=== PATIENT | female | born 1990 | race Caucasian/White ===

== ENCOUNTER 2018-05-20 14:06 | Emergency (ER) | END 2018-05-20 16:43 | disposition home or self-care (01) ==

== ENCOUNTER 2018-10-28 21:37 | Outpatient (CLI) | payer OTHER ==
[~2018-10-28] VITALS: Ht 160 cm; Wt 84.2 kg
[2018-10-28 21:52] VITALS: Ht 160 cm; Wt 84.2 kg
[2018-10-28] MEDS ORDERED: PREN-93 PO (21:54)
[2018-10-28] MEDS ORDERED: FER325 PO (21:54)
--- NOTE | 2018-10-28 23:58 | TRIAGE ---
OB Triage Datetime Report Generated by CPN: 10/28/2018 23:58 Datetime: 10/28/2018 23:39 Labor Evaluation Frequency: X2 Monitor Mode: External Duration (sec)2399: 60-100 Quality: Mild Pattern: Normal: <= 5 Contractions in 10 Minutes Resting Tone [place]: Relaxed Heart Rate FHR Baseline Rate: 135 Monitor Mode: External US Variability: Moderate 6-25 bpm Accelerations: 15X15 Decelerations: None Category: Category I Datetime: 10/28/2018 22:45 Stage of : OB Triage Labor Evaluation Frequency: x2 Monitor Mode: External Duration (sec)2399: 70-120 Quality: Mild Pattern: Normal: <= 5 Contractions in 10 Minutes Resting Tone [place]: Relaxed Heart Rate FHR Baseline Rate: 135 Monitor Mode: External US Variability: Moderate 6-25 bpm Accelerations: 15X15 Decelerations: None Category: Category I Pain Assessment Pain Scale: 0 Pain Presence: None/Denies Pain Type: N/A Pain Assessment Comments: Pt reported 0 pain on her right side when lying down in bed. Datetime: 10/28/2018 22:00 Stage of : OB Triage Maternal Assessment Level of Consciousness: Fully Conscious DTR's/Clonus: DTRs 2+; No Clonus Headache: Denies Blurred Vision: No Respiratory Effort: Unlabored; Regular Rhythm; Equal Expansion Breath Sounds, Left: Clear and Equal Breath Sounds, Right: Clear and Equal Nausea/Vomiting: Denies RUQ Epigastric Pain: Denies Lower Extremities Edema: None Degree: None Upper Extremities Edema: None Degree: None Facial Edema: None Fall Risk Assessment History of Falling: (0) No Secondary Diagnosis: (0) No Ambulatory Aid: (0) Bedrest/Nurse Assist IV Therapy: (0) No Gait: (0) Normal/Bedrest/Immobile Mental Status: (0) Oriented to Own Ability Fall Score: 0 Fall Risk Score Definition: No Risk: No action required Pain Assessment Pain Scale: 5 Pain Presence: Constant Pain Type: Dull Pain Location: RIGHT SIDE PAIN Pain Goal: 0 Pain Relief Measures: Comfort Measures Datetime: 10/28/2018 21:59 Stage of : OB Triage Datetime: 10/28/2018 21:58 Time of Arrival: 10/28/2018 21:33 EGA: 36.3 Arrived By: Wheelchair Arrived From: Home Chief Complaint: BLURRY VISION RIGHT SIDED PAIN SINCE THURSDAY Movement: Present Contractions: OCCASIONAL Rupture of Membranes: Denies Vaginal Discharge: Present Recent Sexual Intercouse: Denies Abdominal Trauma: Not Applicable Patient Complaints: Other Additional Patient Complaints: EMESIS X1 Time Provider Notified: 10/28/2018 21:43 Provider Notified: DR. VALDEZ Initial Plan: EFM, EVALUATE BLOOD PRESSURE, CALL OB Datetime: 10/28/2018 21:57 Stage of : OB Triage
--- NOTE | 2018-10-29 01:41 | PN ---
Triage Information Date/Time 10/29/18 Reason for visit: bluury vision after vomit Weeks of Gestation 36w3d /Para Diabetes: none Hypertention: none Objective BP 100/59 similar with multiple occasions highest 122/68 HR 76-93 Heart Rate: 130's Contractions: >10 Minutes Apart Results/Medications Result Diagram: 10/28/18225110/28/182251 Results 24 hrs Laboratory Tests Test 10/28/18 22:52 White Blood Count 9.3 Red Blood Count 3.99 L Hemoglobin 11.7 L Hematocrit 35.0 L Mean Corpuscular Volume 87.7 Mean Corpuscular Hemoglobin 29.3 Mean Corpuscular Hemoglobin Concent 33.4 Red Cell Distribution Width 14.3 Platelet Count 175 Mean Platelet Volume 10.5 H Immature Granulocytes % 1.400 H Neutrophils % 65.0 Lymphocytes % 24.7 Monocytes % 7.4 Eosinophils % 1.3 Basophils % 0.2 Nucleated Red Blood Cells % 0.0 Immature Granulocytes # 0.130 H Neutrophils # 6.0 Lymphocytes # 2.3 Monocytes # 0.7 Eosinophils # 0.1 Basophils # 0.0 Nucleated Red Blood Cells # 0.0 Prothrombin Time 13.4 Prothrombin Time Ratio 1.0 INR International Normalized Ratio 1.01 Activated Partial Thromboplast Time 25.8 Fibrinogen 511.0 H Urine Color YELLOW Urine Clarity SLIGHTLY CLOUDY A Urine pH 7.0 Urine Specific [place] 1.014 Urine Ketones NEGATIVE Urine Nitrite NEGATIVE Urine Bilirubin NEGATIVE Urine Urobilinogen NEGATIVE Urine Leukocyte Esterase NEGATIVE Urine Microscopic RBC 0 Urine Microscopic WBC 1 Urine Squamous Epithelial Cells MODERATE Urine Bacteria FEW A Urine Hemoglobin NEGATIVE Urine Glucose NEGATIVE Urine Total Protein NEGATIVE Sodium Level 136 Potassium Level 3.7 Chloride Level 106 Carbon Dioxide Level 19 L Anion Gap 11 Blood Urea Nitrogen 8 Creatinine 0.51 Est Glomerular Filtrat Rate mL/min > 60 Glucose Level 79 Uric Acid 3.7 Calcium Level 9.3 Total Bilirubin 0.1 L Direct Bilirubin 0.00 Indirect Bilirubin 0.1 Aspartate Amino Transf (AST/SGOT) 23 Alanine Aminotransferase (ALT/SGPT) 26 Alkaline Phosphatase 159 H Total Protein 6.9 Albumin 3.5 Globulin 3.40 H Albumin/Globulin Ratio 1.02 Imaging Results BPP 8/8 RASHIDA 8.9 Disposition: Discharge Assessment/Plan A IUP 36w3d borderline oligohydroamnios blurry vision (last eye exam in july) resolved, only one time briefly after vomit P RTH in 3days for RASHIDA RTH prn if symptoms recur MARIE VALDEZ MD Oct 29, 2018 01:41
== END 2018-10-28 23:57 | disposition home or self-care (01) ==
LOC: L-D 21:37 → OBT 21:37 → L-D 21:51 → OBT 23:57
PROVIDERS: ATTEND Specialist
DX: O26.893 Other specified pregnancy related conditions, third trimester (principal); Z3A.36 36 weeks gestation of pregnancy; H53.8 Other visual disturbances
CPT/HCPCS: 76818; 80053; 81001; 84560; 85025; 85384; 85610; 85730; G0463; 81003

== ENCOUNTER 2018-10-31 21:00 | Outpatient (CLI) | payer OTHER ==
[~2018-10-31] VITALS: Ht 160 cm; Wt 84.4 kg
[2018-10-31 20:50] VITALS: Ht 160 cm; Wt 84.4 kg
[~2018-10-31 21:00] MED LIST: FER325 PO; PREN-93 PO
[2018-10-31 21:02] VITALS: BP 102/63; PULSE 76; RESP 17
--- NOTE | 2018-10-31 23:25 | TRIAGE ---
OB Triage Datetime Report Generated by CPN: 10/31/2018 23:25 Datetime: 10/31/2018 23:00 Labor Evaluation Frequency: x3 with irritability Monitor Mode: External Duration (sec)2399: 100-150 Heart Rate FHR Baseline Rate: 135 Monitor Mode: External US Variability: Moderate 6-25 bpm Accelerations: 15X15 Decelerations: None Category: Category I Datetime: 10/31/2018 22:10 Vaginal Exam Membrane Status: Intact Datetime: 10/31/2018 22:00 Heart Rate FHR Baseline Rate: 135 Monitor Mode: External US Variability: Moderate 6-25 bpm Accelerations: 15X15 Decelerations: None Category: Category I Datetime: 10/31/2018 21:58 Labor Evaluation Frequency: x2 with irritability Monitor Mode: External Duration (sec)2399: 70-110 Pain Assessment Pain Scale: 0 Pain Presence: None/Denies Pain Type: N/A Datetime: 10/31/2018 21:30 Labor Evaluation Frequency: x1 with irritability Monitor Mode: External Duration (sec)2399: 200 Heart Rate FHR Baseline Rate: 135 Monitor Mode: External US Variability: Moderate 6-25 bpm Accelerations: 15X15 Decelerations: None Category: Category I Datetime: 10/31/2018 21:02 Stage of : OB Triage Assessment Type: Triage Maternal Assessment Level of Consciousness: Fully Conscious DTR's/Clonus: DTRs 2+; No Clonus Headache: Denies Blurred Vision: No Respiratory Effort: Unlabored; Regular Rhythm; Equal Expansion Breath Sounds, Left: Clear and Equal Breath Sounds, Right: Clear and Equal Nausea/Vomiting: Denies RUQ Epigastric Pain: Denies Lower Extremities Edema: None Degree: None Upper Extremities Edema: None Degree: None Facial Edema: None Temperature Route: Oral Fall Risk Assessment History of Falling: (0) No Secondary Diagnosis: (0) No Ambulatory Aid: (0) Bedrest/Nurse Assist IV Therapy: (0) No Gait: (0) Normal/Bedrest/Immobile Mental Status: (0) Oriented to Own Ability Fall Score: 0 Fall Risk Score Definition: No Risk: No action required Comments: Patient states she feels active movement Pain Assessment Pain Scale: 0 Pain Presence: None/Denies Pain Type: N/A Datetime: 10/31/2018 20:50 Time of Arrival: 10/31/2018 20:50 EGA: 36.6 Arrived By: Ambulatory Arrived From: Home Chief Complaint: Repeat RASHIDA Movement: Present Contractions: Denies/Absent Rupture of Membranes: Denies Vaginal Bleeding: None Vaginal Discharge: Denies Recent Sexual Intercouse: Denies Abdominal Trauma: Not Applicable Patient Complaints: Other Time Provider Notified: 10/31/2018 22:05 Provider Notified: Dr. Little Initial Plan: EFM x2, RASHIDA Datetime: 10/28/2018 22:00 Fall Score: 0 Fall Risk Score Definition: No Risk: No action required Datetime: 10/28/2018 21:58 EGA: 36.3
--- NOTE | 2018-11-01 01:22 | PN ---
Triage Information Date/Time Reason for visit: Repeat ultrasound for RASHIDA Weeks of Gestation 36 weeks and 6 days /Para Diabetes: none Hypertention: none Objective Vital Signs Date Temp Pulse Resp B/P (MAP) Pulse Ox O2 O2 Flow FiO2 Time Delivery Rate 10/31/18 98.3 76 17 102/63 Room Air 21:02 (76) Heart Rate: 130's Contractions: None Disposition: Discharge Assessment/Plan 28-year-old 2 para 1001 with single intrauterine at 36 weeks and 6 days with a CLAUDINE of 11/22/2018 presents for repeat RASHIDA. She had and RASHIDA 3 days ago which was 8.9 cm. - FHR: No sign of metabolic acidosis- Category I - Contractions: None - US performed, RASHIDA of 10.4 cm - Symptoms and sign of labor, preeclampsia, kick count discussed with patient, she voiced understanding. All of her questions answered. - Patient was discharged home in stable condition with the appropriate discharge instructions provided. I would like patient to have close follow-up with her primary physician or outpatient clinic in 1-2 days or return to triage for worsening symptoms or any other urgent concerns. NAZIA ANGELES Nov 01, 2018 01:22
== END 2018-10-31 23:17 | disposition home or self-care (01) ==
LOC: OBT 21:00 → L-D 21:06 → OBT 23:17
PROVIDERS: ATTEND Specialist
DX: O41.93X0 Disorder of amniotic fluid and membranes, unspecified, third trimester, not applicable or unspecified (principal); Z3A.36 36 weeks gestation of pregnancy
CPT/HCPCS: 76815; G0463

== ENCOUNTER 2018-11-17 17:16 | Inpatient (IN) | payer OTHER ==
[~2018-11-17] VITALS: Ht 160 cm; Wt 85.3 kg
[2018-11-17] MEDS ORDERED: LACTATED RINGER'S 1,000 ML IV PRN (20:35)
[2018-11-17] MEDS ORDERED: IBUPROFEN 600 MG TAB PO PRN (21:00)
[2018-11-17] MEDS ORDERED: MISOPROSTOL 200 MCG TAB PR PRN (21:00)
[2018-11-17] MEDS: LACTATED RINGER'S 1,000 ML IV SCH (21:00)
[2018-11-17] MEDS ORDERED: LIDOCAINE 1% (MPF) 30 ML INJ INJ PRN (21:00)
[2018-11-17] MEDS ORDERED: CARBOPROST 250 MCG INJ IM PRN (21:00)
[2018-11-17] MEDS ORDERED: OXYTOCIN 30 UNITS/LR 500 ML IV SCH (21:00)
[2018-11-17] MEDS ORDERED: BUTORPHANOL 2 MG INJ IV PRN (21:00)
[2018-11-17] MEDS ORDERED: OXYTOCIN 30 UNITS/LR 500 ML IV PRN (21:00)
[2018-11-17] MEDS ORDERED: METHYLERGONOVINE 0.2 MG INJ IM PRN (21:00)
[2018-11-17] MEDS ORDERED: BUTORPHANOL 1 MG INJ IV PRN (21:00)
[2018-11-17] MEDS ORDERED: MINERAL OIL LIGHT 10 ML VIAL TOP PRN (21:00)
[2018-11-17] MEDS ORDERED: AMPICILLIN 2 GM/NS (PMX) 100 ML IV ONE (21:00)
[2018-11-17 22:51] VITALS: Ht 160 cm; Wt 85.3 kg
[2018-11-17 22:52] VITALS: BP 112/75; PULSE 86; RESP 17
[2018-11-17] MEDS: MISOPROSTOL 50 MCG CAPSULE PO PRN (22:55)
[2018-11-18] MEDS: MISOPROSTOL 50 MCG CAPSULE PO PRN ×3 (03:12→12:04)
[2018-11-18] MEDS: AMPICILLIN 1 GM/NS (PMX) 50 ML IV SCH ×6 (03:12→23:21)
[2018-11-18] MEDS: LACTATED RINGER'S 1,000 ML IV SCH ×3 (06:52→20:19)
--- NOTE | 2018-11-18 07:43 | HP ---
Date/Time of Note Date/Time of Note DATE: 11/18/18 TIME: 07:39 OB - History Hx of Present Free Text/Dictation 28 YO with IUP at 39.3 weeks with EDC 11/22/2018 who reported classic symptoms of cholestasis of with itching all over the body including the palm of hands and sole of feet and worsening at night. she was started on Cytotec. pelvic is adequate and EFW < 8 Lb. she is on oral Cytotec. NST is reassuring Care: Good Care Ultrasounds: Normal mid trimester US Obstetrical Complications: None Medical Complications: None Past Family/Social History * Past Medical, Surgical, Family and Obstetric Histories reviewed from chart. OB Admission Exam Vital Signs Vital Signs Vital Signs Date Temp Pulse Resp B/P (MAP) Pulse Ox O2 O2 Flow FiO2 Time Delivery Rate 11/17/18 98.5 86 17 112/75 Room Air 22:52 (87) Physical Exam HEENT: WNL Heart: Rhythm Normal Lungs: Clear, Equal Abdomen: WNL Extremities: Normal Reflexes: Normal Cervical Dilatation: 1cm Last 72 hours Lab Results CBC & BMP 11/17/18 21:20 Liver Function Test 11/17/18 21:20 Alanine Aminotransferase (ALT/SGPT) 28 Albumin 3.6 Alkaline Phosphatase 194 H Aspartate Amino Transf (AST/SGOT) 27 Direct Bilirubin 0.00 Total Protein 6.7 OB Assessment/Plan Other Assessment: IOL for Cholestasis of prenancy at 39.3 weeks Induction Method: per Misoprostol Protocol JAYJAY GUERRA MD Nov 18, 2018 07:43
[2018-11-18] MEDS: URSODIOL 300 MG CAP PO SCH ×2 (08:35→22:06)
[2018-11-18] MEDS ORDERED: FENTAnyl 2MCG/ML-ROPIV 0.2% 100 ML ONE (19:52)
--- NOTE | 2018-11-18 19:55 | PREAC ---
Date/Time of Note Date/Time of Note DATE: 11/18/18 TIME: 19:54 Anesthesia Eval and Record Evaluation Time Pre-Procedure Interview DATE: 11/18/18 TIME: 19:54 Age 28 Sex female NPO: 8 hrs Preoperative diagnosis LABOR PAIN Planned procedure LABOR EPIDURAL Past Medical History Past Medical History: Includes : : (2), Para: (90), Gestational age: (39 3/7 WEEKS) Surgery & Anesthesia Issues No known issue Meds Anticoagulation: No Beta Gilma within 24 hr: No Reason Beta Gilma not given: Pt. not on B-Gilma Reported Medications Ferrous Sulfate* (Ferrous Sulfate*) 325 Mg Tabec, 325 MG PO DAILY, TAB 10/28/18 Vit No.124/Iron/FA ( Vitamin Tablet) 1 Each Tablet, 1 EACH PO, TAB 10/28/18 Current Medications Lactated Ringer's 1,000 ml @ 125 mls/hr Q8H IV Last administered on 11/18/18at 16:25; Admin Dose 125 MLS/HR; Start 11/17/18 at 20:35 Ampicillin 50 ml @ 100 mls/hr Q4H IV Last administered on 11/18/18at 18:55; Admin Dose 100 MLS/HR; Start 11/18/18 at 01:00 Butorphanol Tartrate (Stadol) 1 mg Q2H PRN IV .PAIN; Start 11/17/18 at 21:00 Butorphanol Tartrate (Stadol) 2 mg Q2H PRN IV .PAIN; Start 11/17/18 at 21:00 Lidocaine (Xylocaine 1% (Mpf)) 30 ml ONCE PRN INJ .EPISIOTOMY; Start 11/17/18 at 21:00 Oxytocin/Lactated Ringer's 500 ml @ 500 mls/hr ONCE POST IV ; Start 11/17/18 at 21:00 Oxytocin/Lactated Ringer's 500 ml @ 125 mls/hr POST IV ; Start 11/17/18 at 21:00 Ibuprofen (Motrin) 600 mg ONCE PRN PO .PAIN 1-5; Start 11/17/18 at 21:00 Lactated Ringer's 1,000 ml @ 2,000 mls/hr Q30M PRN IV .ANESTHESIA; Start 11/17/18 at 20:35 Oxytocin/Lactated Ringer's 500 ml @ 0 mls/hr ONCE PRN IV .VAGINAL BLEEDING; Start 11/17/18 at 21:00 Methylergonovine Maleate (Methergine) 0.2 mg ONCE PRN IM .VAGINAL BLEEDING; Start 11/17/18 at 21:00 Carboprost Tromethamine (Hemabate) 250 mcg ONCE PRN IM .VAGINAL BLEEDING; Start 11/17/18 at 21:00 Misoprostol (Cytotec) 1,000 mcg ONCE PRN [place] .VAGINAL BLEEDING; Start 11/17/18 at 21:00 Mineral Oil (Muri-Lube) 10 ml PRN PRN TOP DELIVERY LUBRICATION; Start 11/17/18 at 21:00 Misoprostol (Cytotec 50 Mcg Capsule) 50 mcg Q4H PRN PO CERVICAL RIPENING Last administered on 11/18/18at 12:04; Admin Dose 50 MCG; Start 11/17/18 at 22:00 Ursodiol (Actigall) 300 mg BID PO Last administered on 11/18/18at 08:35; Admin Dose 300 MG; Start 11/18/18 at 09:00 Meds reviewed: Yes Allergies Coded Allergies: No Known Allergy (Unverified , 10/31/18) Allergies Reviewed: Yes Labs/Studies Labs Reviewed: Reviewed by anesthesiologist Result Diagram: 11/17/18211911/17/182119 Laboratory Tests 11/17/18 21:20 Blood Bank Test 11/17/18 21:20 Antibody Screen NEGATIVE Blood Type O POSITIVE Rh Immune Globulin Candidate NO test: N/A Pre-procedure Exam Last vitals Vital Signs Date Temp Pulse Resp B/P (MAP) Pulse Ox O2 O2 Flow FiO2 Time Delivery Rate 11/17/18 98.5 86 17 112/75 Room Air 22:52 (87) Airway: Adequate mouth opening, Adequate thyromental dist Mallampati: Mallampati II Teeth: Normal Lung: Normal Heart: Normal ASA Physical Status ASA physical status: 2 Emergency: None Planned Anesthetic Neuraxial: Epidural Planned Pain Management Epidural Pre-operative Attestations Prior to commencing anesthesia and surgery, the patient was re-evaluated, there was verification of: *The patient's identity *The results of appropriate recent lab work and preoperative vital signs *The above evaluation not changing prior to induction *Anesthetic plan, risk benefits, alternative and complications discussed with patient/family; questions answered; patient/family understands, accepts and wishes to proceed. Misha Magana M.D. Nov 18, 2018 19:55
--- NOTE | 2018-11-18 20:19 | PAC ---
Date/Time of Note Date/Time of Note DATE: 11/18/18 TIME: 20:19 Post-Anesthesia Notes Post-Anesthesia Note Last documented vital signs Vital Signs Date Temp Pulse Resp B/P (MAP) Pulse Ox O2 O2 Flow FiO2 Time Delivery Rate 11/17/18 98.5 86 17 112/75 Room Air 22:52 (87) Activity: WNL Respiratory function: WNL Cardiovascular function: WNL Mental status: Baseline Pain reasonably controlled: Yes Hydration appropriate: Yes Nausea/Vomiting absent: Yes Misha Magana M.D. Nov 18, 2018 20:19
[2018-11-18] MEDS ORDERED: TRIMETHOBENZAMIDE 100 MG/ML VIAL IM PRN (20:30)
[2018-11-18] MEDS ORDERED: NALOXONE (0.4 MG/ML) INJ IV PRN (20:30)
[2018-11-18] MEDS ORDERED: FENTAnyl 2MCG/ML-ROPIV 0.2% 100 ML BAG EPI SCH (20:30)
[2018-11-18] MEDS ORDERED: DIPHENHYDRAMINE 50 MG INJ IV PRN (20:30)
[2018-11-18] MEDS ORDERED: ONDANSETRON 4 MG INJ IV PRN (20:30)
[2018-11-19] MEDS: OXYTOCIN 30 UNITS/LR 500 ML IV SCH ×2 (02:18→02:38)
--- NOTE | 2018-11-19 02:27 | LDN ---
Date/Time of Note Date/Time of Note DATE: 11/19/18 TIME: 02:24 Delivery Summary s/p of viable male infant APGARs 8/9 over intact perineum. placenta delivered intact and spontaneously. EBL 600 ml. Cytotec, Methergine and Pitocin and massaging the uterus done. Placenta Delivered: Spontaneously, Intact & Complete Episiotomy: No Perineal laceration: 0 Anesthesia type: Epidural Estimated blood loss: 600 Sponge & Needle done & correct: Yes All needle counts correct: Yes Any foreign bodies felt in the: No Delivery Information Sex Infant Sex: male Apgars 1 Minute: 8 5 Minute: 9 Suctioning Nose & mouth suctioned at rima: No Delee suction performed: No Umbilical Cord Umbilical cord with: 3 Vessels Cord presentations: nuchal cord Nuchal cord present X: 1 Cord Blood was obtained: Yes Mother & Baby Disposition Disposition Mom & Baby to Maternity; Good: Yes JAYJAY GUERRA MD Nov 19, 2018 02:27
[2018-11-19] MEDS ORDERED: NA PHOSPHATE/BIPHOS 133 ML ENEMA PR PRN (02:30)
[2018-11-19] MEDS ORDERED: ONDANSETRON 4 MG TAB PO PRN (02:30)
[2018-11-19] MEDS ORDERED: ONDANSETRON 4 MG INJ IV PRN (02:30)
[2018-11-19] MEDS ORDERED: SENNA/DOCUSATE NA (8.6MG/50MG) TAB PO PRN (02:30)
[2018-11-19] MEDS ORDERED: DIBUCAINE 1% 30 GM OINT TOP PRN (02:30)
[2018-11-19] MEDS ORDERED: HYDROCODONE/APAP (5/325) TAB PO PRN ×2 (02:30)
[2018-11-19] MEDS ORDERED: MISOPROSTOL 200 MCG TAB PR PRN (02:30)
[2018-11-19] MEDS ORDERED: OXYTOCIN 30 UNITS/LR 500 ML IV PRN (02:30)
[2018-11-19] MEDS ORDERED: DIPHENHYDRAMINE 50 MG INJ IV PRN (02:30)
[2018-11-19] MEDS ORDERED: CARBOPROST 250 MCG INJ IM PRN (02:30)
[2018-11-19] MEDS ORDERED: MAGNESIUM HYDROXIDE 30ML CUP PO PRN (02:30)
[2018-11-19] MEDS ORDERED: DIPHENHYDRAMINE 25 MG CAP PO PRN (02:30)
[2018-11-19 04:20] VITALS: BP 107/57; PULSE 94; RESP 18
[2018-11-19] MEDS: IBUPROFEN 600 MG TAB PO SCH ×3 (06:29→18:06)
[2018-11-19] MEDS: LACTATED RINGER'S 1,000 ML IV SCH (07:24)
[2018-11-19] MEDS: LACTATED RINGER'S 1,000 ML IV* SCH ×2 (07:24→10:23)
[2018-11-19 08:30] VITALS: BP 110/56; PULSE 101; RESP 19
[2018-11-19] MEDS: LANOLIN HPA 1 PKT TOP PRN ×2 (08:30→22:22)
[2018-11-19] MEDS: BENZOCAINE 20% 56 ML SPRAY TOP PRN (08:30)
[2018-11-19] MEDS: WITCH HAZEL/GLYCERIN PAD PR PRN (08:30)
[2018-11-19] MEDS: URSODIOL 300 MG CAP PO SCH ×2 (08:30→22:22)
[2018-11-19] MEDS: SENNA/DOCUSATE NA (8.6MG/50MG) TAB PO SCH ×2 (08:30→21:27)
[2018-11-19 12:10] VITALS: BP 113/55; PULSE 89; RESP 17
[2018-11-19 15:35] VITALS: BP 109/59; PULSE 90; RESP 20
[2018-11-19 19:30] VITALS: BP 102/55; PULSE 89; RESP 18
[2018-11-20] VITALS: BP 100/54; PULSE 82; RESP 18
[2018-11-20] MEDS: IBUPROFEN 600 MG TAB PO SCH ×5 (00:12→23:48)
[2018-11-20 04:09] VITALS: BP 90/47; PULSE 84; RESP 18
[2018-11-20 08:00] VITALS: BP 108/68; PULSE 85; RESP 18
[2018-11-20] MEDS: SENNA/DOCUSATE NA (8.6MG/50MG) TAB PO SCH ×2 (10:22→20:51)
[2018-11-20] MEDS: URSODIOL 300 MG CAP PO SCH ×2 (10:22→20:51)
--- NOTE | 2018-11-20 10:40 | PN ---
Date/Time of Note Date/Time of Note DATE: 11/20/18 TIME: 10:37 OB Subjective Subjective Subjective She reports vaginal bleeding decreased. Breast-feeding. Urinated. Ambulating. Reports numbness in both hands. Reports swelling of both sub-axillary area during . Denies any pain in that area. Reports bulginess and swelling of submaxillary area started at 4 months of . OB Objective Objective Objective Appearance: Alert and oriented x4 does not appear to be in any acute distress Neuro exam within normal limits Abdomen: Soft, gravid, obese, fundus firm and palpable below the umbilicus and nontender Breast: No evidence of engorgement or mastitis There is soft tissue bulginess in both sub-axillary area noted consistent with likely accessory breast tissue There is also evidence of acanthosis nigricans and sub-axillary area noted Extremities, no calf tenderness, no click, 2+ bilateral symmetric edema, no cord palpable Laboratory Tests Test 11/20/18 04:44 White Blood Count 14.3 #H Red Blood Count 3.39 L Hemoglobin 10.0 L Hematocrit 29.8 L Mean Corpuscular Volume 87.9 Mean Corpuscular Hemoglobin 29.5 Mean Corpuscular Hemoglobin Concent 33.6 Red Cell Distribution Width 15.1 H Platelet Count 159 Mean Platelet Volume 10.7 H Immature Granulocytes % 1.000 H Neutrophils % 70.1 Lymphocytes % 19.9 Monocytes % 7.1 Eosinophils % 1.8 Basophils % 0.1 Nucleated Red Blood Cells % 0.0 Immature Granulocytes # 0.140 H Neutrophils # 10.0 H Lymphocytes # 2.9 Monocytes # 1.0 H Eosinophils # 0.3 Basophils # 0.0 Nucleated Red Blood Cells # 0.0 OB Assessment/Plan Other Assessment: 28-year-old status post induction for cholestasis of at term day #1 Doing well Numbness of upper extremity. Neuro exam and motor function within normal limits Symptoms related to carpal tunnel syndrome. Advised the patient to raise arms at night.. Reassured Anemia, , asymptomatic Bilateral subaxillary soft tissue, appeared during , exam consistent with likely accessory breast tissue Currently no evidence of tenderness engorgement Expectant management discussed with patient Routine care Anticipate possible discharge home tomorrow MANAS TORERS MD Nov 20, 2018 10:40
[2018-11-20 16:33] VITALS: BP 123/56; PULSE 90; RESP 18
[2018-11-20 19:30] VITALS: BP 113/73; PULSE 85; RESP 19
[2018-11-21 04:00] VITALS: BP_SYST 107; BP_SYST 111; BP_DIAS 68; PULSE 91; RESP 19
[2018-11-21] MEDS: IBUPROFEN 600 MG TAB PO SCH ×2 (05:43→12:41)
[2018-11-21] MEDS ORDERED: MEASLES,MUMPS,RUBELLA VACCINE INJ SC* ONE (09:00)
[2018-11-21] MEDS: SENNA/DOCUSATE NA (8.6MG/50MG) TAB PO SCH (09:00)
[2018-11-21] MEDS ORDERED: VARICELLA VACCINE LIVE/PF 1,350 UNIT/0.5 ML ML SC* ONE (09:00)
[2018-11-21] MEDS ORDERED: DIPHTH/TET/ACEL PERTUSS (ADULT) 0.5 ML VIAL IM* ONE (09:00)
[2018-11-21] MEDS: URSODIOL 300 MG CAP PO SCH (09:53)
--- NOTE | 2018-11-21 10:40 | DS ---
Date/Time of Note Date/Time of Note DATE: 11/21/18 TIME: 10:39 Obstetrical Discharge Record Final Diagnosis Final Diagnosis: Term delivered Complications Augmentation: Yes Induction: Yes Rupture of Membranes: No Condition on Discharge Physical Assessment Voiding: Yes Bowel Movement: Yes Breast: Soft, non-tender, Filling Fundus: Firm Abdomen and Incision: soft, not tender Calf Tenderness: No Patient Condition: Good JAYJAY GUERRA MD Nov 21, 2018 10:40
[2018-11-21] MEDS: WITCH HAZEL/GLYCERIN PAD PR PRN (12:44)
[2018-11-21] MEDS: BENZOCAINE 20% 56 ML SPRAY TOP PRN (12:44)
== END 2018-11-21 13:00 | disposition home or self-care (01) | DRG 805 ==
LOC: L-D 17:16 → MS1 11-19 04:55 → EDSTATUS 11-22 17:10
PROVIDERS: ADMIT Specialist; ATTEND Specialist
PROC: 3E033VJ Introduction of Other Hormone into Peripheral Vein, Percutaneous Approach (ICD-10-PCS; 2018-11-17)
PROC: 10E0XZZ Delivery of Products of Conception, External Approach (ICD-10-PCS; principal; 2018-11-19)
DX: O26.62 Liver and biliary tract disorders in childbirth (principal); K83.1 Obstruction of bile duct; O69.81X0 Labor and delivery complicated by cord around neck, without compression, not applicable or unspecified; O99.355 Diseases of the nervous system complicating the puerperium; G56.03 Carpal tunnel syndrome, bilateral upper limbs; Z37.0 Single live birth; Z3A.39 39 weeks gestation of pregnancy
CPT/HCPCS: 62319; 76815; 76818; 80053; 85025; 85610; 85730; 86592; 86850; 86900; 86901; 90715; 90716; J0290; J2210; J2590; J3010; J7120

== ENCOUNTER 2018-11-23 15:27 | Emergency (ER) | payer OTHER ==
[~2018-11-23] VITALS: Ht 162.6 cm; Wt 80.8 kg
[2018-11-23 16:27] VITALS: Ht 162.6 cm; Wt 80.8 kg
--- NOTE | 2018-11-23 18:28 | ERD ---
ER Documentation Chief Complaint Chief Complaint BREAST PAIN WITH AXILLARY LUMP AND WARMTH X 2 DAYS HPI Patient is a 28-year-old female with diabetes who presents with breast mass to the bilateral armpits. She initially said the right armpit but it is on both armpits. The symptoms started on Thursday. She has no fevers. She has never had a mammogram. She does have some pain with palpation. Her primary doctor is Dr. Puckett. She is currently breast-feeding. She is a . ROS All systems reviewed and are negative except as per history of present illness. Medications Home Meds Reported Medications Ferrous Sulfate* (Ferrous Sulfate*) 325 Mg Tabec, 325 MG PO DAILY, TAB 10/28/18 Vit No.124/Iron/FA ( Vitamin Tablet) 1 Each Tablet, 1 EACH PO, TAB 10/28/18 Allergies Allergies: Coded Allergies: No Known Allergy (Unverified , 10/31/18) PMhx/Soc Medical and Surgical Hx: pt denies Medical Hx, pt denies Surgical Hx Hx Alcohol Use: No Hx Substance Use: No Smoking Status: Never smoker FmHx Family History: diabetes Physical Exam Vitals Vital Signs Date Temp Pulse Resp B/P (MAP) Pulse Ox O2 O2 Flow FiO2 Time Delivery Rate 11/23/18 97.3 84 16 125/80 98 16:27 (95) Physical Exam Const: No acute distress Head: Atraumatic Eyes: Normal Conjunctiva ENT: Normal External Ears, Nose and Mouth. Neck: Full range of motion. No meningismus. Resp: Clear to auscultation bilaterally Cardio: Regular rate and rhythm, no murmurs Abd: Soft, non tender, non distended. Normal bowel sounds Skin: Fullness to the axillary bilateral, appears to be breast tissue which is leaking breast milk at this time Back: No midline or flank tenderness Ext: No cyanosis, or edema Neur: Awake and alert Psych: Normal Mood and Affect Procedures/MDM Patient is a 28-year-old female presents with bilateral armpit masses. I believe this is hypertrophic breast tissue that is leaking milk at this time. I believe this is likely from her production of oxytocin and I doubt abscess or other serious issue such as cancer. The patient will be discharged and can follow-up with her primary doctor within 1 week. She can return for worsening symptoms. Departure Diagnosis: Primary Impression: Breast pain Condition: Fair Patient Instructions: Breast Mass, Uncertain Cause Referrals: Dr. Puckett Additional Instructions: Call your primary care doctor TOMORROW for an appointment during the next 1 WEEK.Tell the dowel pointer that you were referred from this facility.See the doctor sooner or return here if your condition worsens before your appointment time. EDWIGE SWEET MD Nov 23, 2018 18:28
== END 2018-11-23 18:31 | disposition home or self-care (01) ==
LOC: E/R 15:27
DX: N64.4 Mastodynia (principal); E11.9 Type 2 diabetes mellitus without complications
CPT/HCPCS: 99283